=== PATIENT | female | born 1995 | race Caucasian/White ===

== ENCOUNTER 2023-12-11 21:01 | Emergency (ER) | payer MEDICAID ==
[~2023-12-11] VITALS: Ht 165.1 cm; Wt 74.0 kg
[2023-12-11 21:09] VITALS: O2SAT 97
[2023-12-11] MEDS: ACETAMINOPHEN 325MG TABLET PO ONE (21:51)
[2023-12-11] MEDS: LACTATED RINGERS 1,000 ML IV SCH (21:51)
[2023-12-11] MEDS: METOCLOPRAMIDE HCL 10MG/2ML VIAL IV ONE (21:51)
[2023-12-11 22:18] LABS: BASOPHILS % 0.6 % (0.0-2.0); EOSINOPHILS % 1.2 % (0.0-5.0); HEMATOCRIT. 33.4 % (36.0-48.0); HEMOGLOBIN. 11.2 g/dL (12.0-16.0); LYMPHOCYTES % 21.6 % (20.0-50.0); MEAN CORPUSCULAR HEMOGLOBIN 29.1 pg (28.0-32.0); MEAN CORPUSCULAR HGB CONC 33.4 g/dL (31.0-37.0); MEAN CORPUSCULAR VOLUME 87.1 fL (81.0-99.0); MEAN PLATELET VOLUME 8.6 fl (7.4-10.4); MONOCYTES % 6.1 % (2.0-8.0); NEUTROPHILS % 70.5 % (40.0-76.0); PLATELET 359 x1000/uL (130-400); RED BLOOD CELL COUNT 3.83 mill/uL (4.2-5.4); RED CELL DISTRIBUTION WIDTH 13.6 % (11.6-14.6); WHITE BLOOD COUNT 12.2 x1000/uL (4.5-11.0)
[2023-12-11 22:24] LABS: CHLORIDE 107 mEq/L (98-107); POTASSIUM 3.9 mEq/L (3.5-5.1); SODIUM 139 mEq/L (136-145)
[2023-12-11 22:25] LABS: CARBON DIOXIDE 26 mEq/L (21-32)
[2023-12-11 22:30] LABS: CREATININE 0.6 mg/dL (0.6-1.0); GLUCOSE 113 mg/dL (70-105); UREA NITROGEN BLOOD 15 mg/dL (9-23)
[2023-12-11 22:31] LABS: HCG SCREEN NEGATIVE
[2023-12-11 22:32] LABS: ALANINE AMINOTRANSFERASE 51 IU/L (10-49); ASPARTATE AMINOTRANSFERASE 28 IU/L (<34)
[2023-12-11 22:33] LABS: BILIRUBIN TOTAL 0.2 mg/dL (0.1-1.0); PROTEIN TOTAL 6.3 g/dL (6.0-8.3)
[2023-12-11] MEDS: DEXAMETHASONE 10 MG/ML VIAL IV ONE (23:47)
[2023-12-12] VITALS: BP 124/82; PULSE 89; RESP 18; TEMP 97
== END 2023-12-12 00:02 | disposition home or self-care (01) ==
LOC: ER 21:01
DX: R51.9 Headache, unspecified (principal); R42 Dizziness and giddiness; F19.90 Other psychoactive substance use, unspecified, uncomplicated; E11.9 Type 2 diabetes mellitus without complications
CPT/HCPCS: 80053; 84703; 85025; 36415; 70450; 96361; 96374; 96375; 99285; J1100; J2765; Z7610

== ENCOUNTER 2024-10-04 17:35 | Emergency (ER) | payer MEDICAID ==
[~2024-10-04] VITALS: Ht 165.1 cm; Wt 64.0 kg
[2024-10-04 17:39] VITALS: O2SAT 100
[2024-10-04] MEDS: METOCLOPRAMIDE HCL 10MG/2ML VIAL IV STA (18:32)
[2024-10-04] MEDS: PANTOPRAZOLE SODIUM 40 MG/VIAL IV STA (18:32)
[2024-10-04] MEDS: SODIUM CHLORIDE 0.9% 1,000 ML IV ONE (18:32)
[2024-10-04] MEDS: DIPHENHYDRAMINE 50MG/ML VIAL IV ONE (18:33)
[2024-10-04 18:37] LABS: CHLORIDE 103 mEq/L (98-107); POTASSIUM 3.7 mEq/L (3.5-5.1); SODIUM 141 mEq/L (136-145)
[2024-10-04 18:39] LABS: CALCIUM 9.3 mg/dL (8.7-10.4); CARBON DIOXIDE 30 mEq/L (21-32)
[2024-10-04 18:41] LABS: PROTHROMBIN TIME 10.8 sec (9.6-11.0)
[2024-10-04 18:42] LABS: BASOPHILS % 0.3 % (0.0-2.0); EOSINOPHILS % 1.6 % (0.0-5.0); HEMATOCRIT. 28.1 % (36.0-48.0); HEMOGLOBIN. 9.3 g/dL (12.0-16.0); LYMPHOCYTES % 36.9 % (20.0-50.0); MEAN CORPUSCULAR HEMOGLOBIN 27.2 pg (28.0-32.0); MEAN CORPUSCULAR HGB CONC 33.2 g/dL (31.0-37.0); MEAN CORPUSCULAR VOLUME 81.8 fL (81.0-99.0); MEAN PLATELET VOLUME 8.4 fl (7.4-10.4); MONOCYTES % 5.1 % (2.0-8.0); NEUTROPHILS % 56.1 % (40.0-76.0); PLATELET 474 x1000/uL (130-400); RED BLOOD CELL COUNT 3.44 mill/uL (4.2-5.4); RED CELL DISTRIBUTION WIDTH 15.7 % (11.6-14.6); WHITE BLOOD COUNT 8.9 x1000/uL (4.5-11.0)
[2024-10-04 18:44] LABS: CREATININE 1.1 mg/dL (0.6-1.0)
[2024-10-04 18:45] LABS: ETHANOL BLOOD < 10 mg/dL (<10); GLUCOSE 62 mg/dL (70-105); UREA NITROGEN BLOOD 9 mg/dL (9-23)
[2024-10-04 18:46] LABS: ALANINE AMINOTRANSFERASE 22 IU/L (10-49); ALBUMIN 4.4 g/dL (3.2-4.8); ASPARTATE AMINOTRANSFERASE 16 IU/L (<34)
[2024-10-04 18:47] LABS: BILIRUBIN DIRECT < 0.1 mg/dL (<=3.0); BILIRUBIN TOTAL 0.2 mg/dL (0.1-1.0); PROTEIN TOTAL 7.8 g/dL (6.0-8.3)
[2024-10-04 18:57] LABS: HCG SCREEN NEGATIVE
[2024-10-05] MEDS: METOPROLOL TARTRATE 25MG TABLET PO SCH (00:30)
[2024-10-05 00:38] LABS: CLARITY URINE CLEAR (CLEAR); COLOR URINE YELLOW (YELLOW); GLUCOSE URINE NEGATIVE (NEGATIVE); KETONES URINE NEGATIVE (NEGATIVE); LEUKOCYTE ESTERASE URINE TRACE (NEGATIVE); NITRITE URINE NEGATIVE (NEGATIVE); OCCULT BLOOD URINE NEGATIVE (NEGATIVE); PH URINE 8.5 (4.5-8.0); PROTEIN URINE NEGATIVE (NEGATIVE); SPECIFIC GRAVITY URINE 1.009 (1.005-1.030); UROBILINOGEN URINE 0.2 E.U./dL (0.2-1.0)
[2024-10-05 00:46] LABS: *AMPHETAMINES SCREEN URINE NEGATIVE (NEGATIVE); *BARBITURATES SCREEN URINE NEGATIVE (NEGATIVE); *BENZODIAZEPINES SCREEN URINE NEGATIVE (NEGATIVE); *COCAINE SCREEN URINE NEGATIVE (NEGATIVE); CANNABINOID URINE SCREEN NEGATIVE (NEGATIVE); ECSTASY MDMA SCREEN URINE NEGATIVE (NEGATIVE); METHADONE URINE SCREEN NEGATIVE (NEGATIVE); OPIATES URINE SCREEN NEGATIVE (NEGATIVE); PHENCYCLIDINE URINE SCREEN NEGATIVE (NEGATIVE)
[2024-10-05] MEDS ORDERED: METO5TAB86 MT (00:46)
[2024-10-05] MEDS ORDERED: CEPH500C2 MT (01:18)
[2024-10-05] MEDS: ONDANSETRON HCL 4MG/2ML INJ IV ONE (01:25)
[2024-10-05 01:32] LABS: RBC URINE NONE SEEN /hpf (0-2); SQUAMOUS EPITHELIAL CELL URINE 1+ /lpf (RARE/1+)
[2024-10-05 01:33] LABS: BACTERIA URINE NONE SEEN
[2024-10-05] MEDS: CEPHALEXIN 250MG CAPSULE PO SCH (02:06)
[2024-10-05 02:08] VITALS: TEMP 36.4
[2024-10-05] MEDS: DEXTROSE 50% WATER 50ML SYRINGE IV ONE (02:37)
[2024-10-05 04:14] VITALS: BP 120/80; PULSE 90; RESP 12; O2SAT 100
== END 2024-10-05 04:30 | disposition home or self-care (01) ==
LOC: ER 17:35
DX: K31.84 Gastroparesis (principal); D64.9 Anemia, unspecified; E11.9 Type 2 diabetes mellitus without complications; R00.0 Tachycardia, unspecified; F19.90 Other psychoactive substance use, unspecified, uncomplicated; Z79.899 Other long term (current) drug therapy
CPT/HCPCS: 80076; 80048; 80320; 82962 ×2; 84703; 83690; 85025; 85610; 36415; 74176; 96374; 96375 ×2; 99285; 80305; 81003; J1200; J2765; J2470; J7030; J2405; G0480